=== PATIENT | female | born 1950 | race Native Hawaiian/Other Pacific Islander ===

== ENCOUNTER 2017-12-19 14:11 | Emergency (ER) | payer OTHER ==
[~2017-12-19] VITALS: Ht 160 cm; Wt 63.5 kg
[2017-12-19 14:15] VITALS: TEMP 97.3
[2017-12-19 17:00] VITALS: BP 126/80
== END 2017-12-19 17:00 | disposition home or self-care (01) ==
LOC: ED 14:11
DX: S42.212A Unspecified displaced fracture of surgical neck of left humerus, initial encounter for closed fracture (principal); W01.0XXA Fall on same level from slipping, tripping and stumbling without subsequent striking against object, initial encounter; Y92.89 Other specified places as the place of occurrence of the external cause
CPT/HCPCS: 99283; J1885

== ENCOUNTER 2018-04-15 11:41 | Outpatient (CLI) | payer OTHER | END 2018-04-15 11:51 | disposition short-term general hospital (02) | LOC: AMB 11:41 | DX: M79.621 Pain in right upper arm (principal) | CPT/HCPCS: A0425; A0429 ==

== ENCOUNTER 2018-04-15 11:53 | Emergency (ER) | payer OTHER ==
[~2018-04-15] VITALS: Ht 160 cm; Wt 63.5 kg
[2018-04-15 11:53] VITALS: TEMP 98.1
[2018-04-15 13:42] VITALS: BP 131/75
== END 2018-04-15 13:42 | disposition home or self-care (01) ==
LOC: ED 11:57
DX: S39.012A Strain of muscle, fascia and tendon of lower back, initial encounter (principal); S40.021A Contusion of right upper arm, initial encounter; V59.9XXA Occupant (driver) (passenger) of pick-up truck or van injured in unspecified traffic accident, initial encounter
CPT/HCPCS: 99283